=== PATIENT | male | born 1995 | race Caucasian/White ===

== ENCOUNTER 2020-04-16 18:49 | Emergency (ER) | payer BC ==
[2020-04-16 18:53] VITALS: BP 145/80; PULSE 67; RESP 18; TEMP 98.6
[2020-04-16] MEDS ORDERED: PROPARACAINE 0.5% OPHTH DROPS 15 ML BTL RIGHT EYE STA (19:05)
[2020-04-16] MEDS ORDERED: FLUORESCEIN STRIPS 1 MG STRIP RIGHT EYE ONE (19:05)
[2020-04-16] MEDS ORDERED: ERYTHROMYCIN 5 MG/GM OPHTH OINT 1 GM TUBE RIGHT EYE STA (19:48)
--- NOTE | 2020-04-16 19:50 | ED ---
General Adult HPI - General Chief complaint: Eye Problems Stated complaint: Right eye injury Time Seen by Provider: 04/16/20 18:55 Source: patient Mode of arrival: ambulatory Limitations: no limitations - History of Present Illness Initial comments: 24-year-old male presents to the emergency room for right eye pain. Patient was chipping tile off of his wall when a piece hit him in the eye. Patient reports that he has had pain. He denies visual changes. States his eye is watery. He is up-to-date on tetanus immunization in the past 5 years. He does not wear contacts.Patient has no other complaints at this time including shortness of breath, chest pain, abdominal pain, nausea or vomiting, headache, or visual changes. - Related Data Previous Rx's Medication Instructions Recorded Erythromycin Ophth Oint [Romycin 1 applic RIGHT EYE QID 7 Days #10 04/16/20 Ophth Oint] gm Allergies Allergy/AdvReac Type Severity Reaction Status Date / Time No Known Allergies Allergy Verified 04/16/20 18:53 Review of Systems ROS Statement: Those systems with pertinent positive or pertinent negative responses have been documented in the HPI. ROS Other: All systems not noted in ROS Statement are negative. Past Medical History Past Medical History: No Reported History History of Any Multi-Drug Resistant Organisms: None Reported Past Surgical History: Tonsillectomy Past Psychological History: No Psychological Hx Reported Smoking Status: Never smoker Past Alcohol Use History: Occasional Past Drug Use History: None Reported General Exam Limitations: no limitations General appearance: alert Head exam: Present: atraumatic Eye exam: Present: normal appearance, PERRL, EOMI, conjunctival injection (Patient has erythematous conjunctiva with subconjunctival hemorrhage noted of the medial aspect of the right eye.) ENT exam: Present: normal exam, mucous membranes moist Neck exam: Present: normal inspection, full ROM. Absent: tenderness Respiratory exam: Present: normal lung sounds bilaterally. Absent: respiratory distress, wheezes Cardiovascular Exam: Present: regular rate, normal rhythm, normal heart sounds GI/Abdominal exam: Present: soft, normal bowel sounds. Absent: distended, tenderness Neurological exam: Present: alert Course Vital Signs 04/16/20 18:50 Temperature 98.6 F Pulse Rate 67 Respiratory 18 Rate Blood Pressure 145/80 O2 Sat by Pulse 96 Oximetry Medical Decision Making - Medical Decision Making PERRLA. No edema.Both eyelids were flipped, no retained foreign bodies. Patient does have a small subconjunctival hemorrhage noted on the medial aspect of the right eye. Visual acuity as documented, OS 20/20, OD 20/30. He is denying visual changes. The eye was anesthetized with proparacaine which Did give him significant relief. The eye was then stained with fluorescein stain and Wood's lamp was used to visualize conjunctiva. Patient does have abrasion across the medial aspect of the eye. Patient is up-to-date on tetanus. He does not wear contacts. Patient was given antibiotic ointment and ophthalmology for referral. He will return here for any worsening symptoms. I discussed this case with attending Dr. Deleon who agrees with this assessment and treatment plan. Disposition Clinical Impression: Corneal abrasion, right, Subconjunctival hemorrhage of right eye Disposition: HOME SELF-CARE Condition: Good Instructions (If sedation given, give patient instructions): Subconjunctival Hemorrhage (ED), Corneal Abrasion (ED) Additional Instructions: Please apply antibiotic ointment every 6 hours for 7 days. Please follow-up with ophthalmology on Saturday. If you develop any worsening symptoms return to the emergency room. Prescriptions: Erythromycin Ophth Oint [Romycin Ophth Oint] 1 applic RIGHT EYE QID 7 Days #10 gm Is patient prescribed a controlled substance at d/c from ED?: No Referrals: Easton Grace MD [Primary Care Provider] - 1-2 days Isaac Yao MD [STAFF PHYSICIAN] - 1-2 days Time of Disposition: 19:47
== END 2020-04-16 20:08 | disposition home or self-care (01) ==
LOC: EC 18:49
DX: S05.01XA Injury of conjunctiva and corneal abrasion without foreign body, right eye, initial encounter (principal); H11.31 Conjunctival hemorrhage, right eye; W22.8XXA Striking against or struck by other objects, initial encounter; Y93.89 Activity, other specified
CPT/HCPCS: 99283